=== PATIENT | female | born 1960 | race Caucasian/White ===

== ENCOUNTER → 2022-02-15 | Outpatient (CLI) | payer OTHER ==
[2022-02-15 14:43] LABS: BASO # 0.04 K/mm3 (0.02-0.10); EOS # 0.38 K/mm3 (0.04-0.40); EOS % 6.5 % (1.0-5.0); HEMATOCRIT 43.3 % (37.0-47.0); MEAN CELL VOLUME 94 fl (78-100); MEAN CORPUSCULAR HEMOGLOBIN 31 pg (27-31); MEAN CORPUSCULAR HGB CONC 32 g/dL (33-37); MEAN PLATELET VOLUME 10.5 fl (7.4-10.4); MONO # 0.47 K/mm3 (0.20-0.80); NEU # 3.11 K/mm3 (1.40-6.50); PLATELET COUNT 199 K/mm3 (130-400); RED BLOOD COUNT 4.59 M/mm3 (4.10-5.30); RED CELL DISTRIBUTION WIDTH 12.9 % (11.5-14.5); WHITE BLOOD COUNT 5.8 K/mm3 (4.8-10.8)
[2022-02-15 14:55] LABS: ALBUMIN 4.1 g/dL (3.4-4.8); POTASSIUM 4.3 mmol/L (3.5-5.1)
[2022-02-15 14:56] LABS: CALCIUM 9.9 mg/dL (8.3-10.5)
[2022-02-15 14:59] LABS: TOTAL BILIRUBIN 0.8 mg/dL (0.2-1.2)
== END ==
LOC: LAB 14:26
PROVIDERS: Internal Medicine
DX: Z12.31 Encounter for screening mammogram for malignant neoplasm of breast (principal); J45.20 Mild intermittent asthma, uncomplicated; F40.01 Agoraphobia with panic disorder; J30.2 Other seasonal allergic rhinitis; R79.0 Abnormal level of blood mineral

== ENCOUNTER 2022-07-04 18:08 | Emergency (ER) | payer OTHER ==
[~2022-07-04] VITALS: Ht 170.2 cm; Wt 90.9 kg
[2022-07-04 19:03] LABS: BASO # 0.02 K/mm3 (0.02-0.10); EOS # 0.36 K/mm3 (0.04-0.40); EOS % 5.5 % (1.0-5.0); HEMATOCRIT 43.5 % (37.0-47.0); HEMOGLOBIN 14.1 g/dL (12.5-16.0); LYMPH# 2.16 K/mm3 (1.50-4.00); MEAN CELL VOLUME 93 fl (78-100); MEAN CORPUSCULAR HEMOGLOBIN 30 pg (27-31); MEAN CORPUSCULAR HGB CONC 32 g/dL (33-37); MEAN PLATELET VOLUME 11.2 fl (7.4-10.4); MONO # 0.58 K/mm3 (0.20-0.80); NEU # 3.44 K/mm3 (1.40-6.50); PLATELET COUNT 192 K/mm3 (130-400); RED BLOOD COUNT 4.68 M/mm3 (4.10-5.30); RED CELL DISTRIBUTION WIDTH 12.8 % (11.5-14.5); WHITE BLOOD COUNT 6.6 K/mm3 (4.8-10.8)
[2022-07-04 19:19] LABS: CALCIUM 10.1 mg/dL (8.3-10.5)
[2022-07-04 19:21] LABS: TOTAL PROTEIN 7.2 g/dL (6.2-8.1)
[2022-07-04 19:22] LABS: TOTAL BILIRUBIN 0.7 mg/dL (0.2-1.2)
[2022-07-04 19:27] LABS: MAGNESIUM 2.05 mg/dL (1.60-2.60)
[2022-07-04] MEDS ORDERED: PROVENTIL0.09 MG/A1 IH (19:49)
[2022-07-04] MEDS ORDERED: ADVAIR DISKUS1 DS2 IH (19:49)
[2022-07-04 20:18] VITALS: BP 128/97
== END 2022-07-04 20:39 | disposition home or self-care (01) ==
LOC: ED 18:08
PROVIDERS: Physician Assistant
DX: F41.9 Anxiety disorder, unspecified (principal); Z82.49 Family history of ischemic heart disease and other diseases of the circulatory system; Z28.310 Unvaccinated for COVID-19

== ENCOUNTER → 2022-07-06 | Outpatient (CLI) | payer OTHER ==
[~2022-07-06] MED LIST: ADVAIR DISKUS1 DS2 IH; PROVENTIL0.09 MG/A1 IH
[2022-07-06 12:43] LABS: BASO # 0.02 K/mm3 (0.02-0.10); EOS # 0.42 K/mm3 (0.04-0.40); HEMATOCRIT 43.9 % (37.0-47.0); HEMOGLOBIN 14.1 g/dL (12.5-16.0); LYMPH# 1.82 K/mm3 (1.50-4.00); MEAN CELL VOLUME 95 fl (78-100); MEAN CORPUSCULAR HEMOGLOBIN 30 pg (27-31); MEAN CORPUSCULAR HGB CONC 32 g/dL (33-37); MEAN PLATELET VOLUME 10.9 fl (7.4-10.4); MONO # 0.46 K/mm3 (0.20-0.80); NEU # 3.27 K/mm3 (1.40-6.50); PLATELET COUNT 189 K/mm3 (130-400); RED BLOOD COUNT 4.64 M/mm3 (4.10-5.30)
[2022-07-06 12:54] LABS: ALBUMIN 3.9 g/dL (3.4-4.8)
[2022-07-06 12:55] LABS: CALCIUM 9.7 mg/dL (8.3-10.5)
[2022-07-06 12:56] LABS: TOTAL PROTEIN 6.9 g/dL (6.2-8.1)
[2022-07-06 12:58] LABS: TOTAL BILIRUBIN 0.5 mg/dL (0.2-1.2)
== END ==
LOC: LAB 12:27
PROVIDERS: Internal Medicine
DX: K90.9 Intestinal malabsorption, unspecified (principal); F41.0 Panic disorder [episodic paroxysmal anxiety]

== ENCOUNTER 2023-12-26 13:09 | Outpatient (RCR) | payer OTHER ==
[~2023-12-26 13:09] MED LIST changes: +AMOXICILLIN AND1 TAB PO; +BENADRYL ALLERG25 M1 PO; +FLONASE SENSIM5.9 ML NS; +MUCINEX 60600 MG/TA1 PO; +SUPHEDRIN30 MG PO; +XANAX0.25 M1 PO; +ZYRTEC ALLERGY10 MG PO
== END 2024-01-19 | disposition home or self-care (01) ==
LOC: OT → PT 13:09
DX: S42.301D Unspecified fracture of shaft of humerus, right arm, subsequent encounter for fracture with routine healing (principal); Z98.890 Other specified postprocedural states; W19.XXXD Unspecified fall, subsequent encounter